=== PATIENT | male | born 1980 | race Caucasian/White ===

== ENCOUNTER 2021-03-24 08:33 | Outpatient (CLI) | payer BC, SELFPAY ==
[2021-03-24 08:51] LABS: Hematocrit 46.7 % (42.0-52.0); Hemoglobin 15.7 g/dL (14.0-18.0); Mean Corpuscular HGB Conc 33.6 g/dl (32-36); Mean Corpuscular Hemoglobin 29.7 pg (26-34); Mean Corpuscular Volume 88.3 fl (80-100); Platelet Count Result 260 k/mm3 (150-375); Red Blood Count 5.29 M/mm3 (4.6-6.20); Red Cell Distribution Width 13.3 % (11.5-14.5); White Blood Count 6.3 K/mm3 (4.5-10.0)
[2021-03-24 09:03] LABS: Alanine Aminotransferase 76 U/L (4-50); Albumin Level 4.5 g/dL (3.5-5.1); Alkaline Phosphatase 87 U/L (38-126); Anion Gap 10 mmol/L (8-16); Aspartate Amino Transferase 49 U/L (17-59); Bilirubin,Total 0.7 mg/dL (0.2-1.3); Blood Urea Nitrogen 14 mg/dL (9-20); Calcium 9.5 mg/dL (8.4-10.2); Carbon Dioxide 31 mmol/L (22-30); Chloride 101 mmol/L (98-107); Cholesterol 212 mg/dL (0-200); Estimated Glomerular Filt Rate > 60; Glucose 101 mg/dL (65-110); HDL Direct 45 mg/dL; Potassium 3.8 mmol/L (3.4-5.0); Sodium 142 mmol/L (137-145); Triglycerides 88 mg/dL (<150)
[2021-03-24 09:14] LABS: LDL Cholesterol Direct 124 mg/dL
[2021-03-29 08:47] LABS: Testosterone Total 518 ng/dL (250-1100)
== END 2021-03-24 08:34 | disposition home or self-care (01) ==
PROVIDERS: PCP Family Medicine; Visit Provider Family Medicine
DX: R53.83 Other fatigue (principal)
CPT/HCPCS: 36415; 80053; 80061; 84403; 84443; 85027

== ENCOUNTER 2023-04-08 16:12 | Emergency (ER) | payer BC, SELFPAY ==
--- NOTE | 2023-04-08 16:14 | ED.EAR ---
HPI - Ear Problem General Chief complaint: Ear Stated complaint: L EAR PROBLEMS Time Seen by Provider: 04/08/23 16:14 Source: patient Mode of arrival: ambulatory Limitations: no limitations History of Present Illness HPI Narrative: Toribio is a 42-year-old male patient presenting to the clinic today with complaints of left ear tinnitus and pain. He reports that this has been going on since Friday. Feels as though he is underwater. Denies any fever chills. Related Data Home Medications Medication Instructions Recorded Confirmed cetirizine 10 mg tablet (Zyrtec) 10 mg PO DAILY PRN 12/30/22 12/30/22 Allergies Allergy/AdvReac Type Severity Reaction Status Date / Time No Known Allergies Allergy Mild Verified 02/13/23 13:09 poison radha extract Allergy Unknown Unknown Verified 02/13/23 13:09 Review of Systems Review of Systems: Pertinent positives per HPI. Patient denies any fever, chills, rash, headache, visual changes, dizziness, cough, runny nose, sore throat, shortness of breath, chest pain, palpitations, nausea, vomiting, diarrhea, constipation, abdominal pain, or any urinary issues. FOR[facility]LY [facility], [facility] Past Medical History Medical History Anogenital (venereal) warts Body mass index [BMI] 33.0-33.9, adult (12/02/18) Dysthymia Lumbar radiculopathy Unspecified internal derangement of left knee Family History Family History Mother Family history of arthritis Other Family history of elevated blood lipids Social History Social History Smoking status: Never smoker Alcohol intake: never Lack of Transportation: No Lack of Food: Never True Current Housing: I Have Housing Concerned About Future Housing: No Difficulty Paying Gas/Electric Bills: No Difficulty Paying for Meds: No Currently Unemployed: No Education: Bachelor's Degree Difficulty w/ Childcare or Family Care: No Comments At the time of my signature, I reviewed and agree with the nursing past medical, surgical, social, and family history. There is no relevant family history pertinent to the patient complaint. Exam Narrative: General: Well-developed, well nourished, in no apparent distress Head: Normocephalic, atraumatic Eyes: Pupils equally round and reactive to light bilaterally, EOM intact, sclera and conjunctive clear, no discharge, lids normal Ears: TMs intact and clear, ear canals clear, no drainage, grossly hearing normal. Nose: Nares patent, no discharge, no inflammation, no sinus tenderness. Mouth: Oropharynx without lesions or masses, good dentition, MMM. Neck: Supple, trachea midline, no enlargement of anterior or posterior cervical nodes, no thyroid masses or goiter palpable. Cardio: Regular rate and rhythm, s1 and s2 normal, no murmur appreciated. Resp: Clear to auscultation bilaterally anteriorly and posteriorly, no rhonchi, rales, wheezing or rubs Course Course Emergency Course: Portions of this record may have been created with voice recognition software. Level of Care: Express Care Visit Vital Signs Vital signs: Vital signs reviewed Medical Decision Making MDM Narrative Medical decision making narrative: At the time of visit patient is resting comfortably on the exam table. Patient appears to be nontoxic. Supportive measures were discussed with the patient and they voiced understanding discharge instructions and agrees to treatment plan. Return precautions reviewed Differential Diagnosis Differential Diagnosis: Otitis media, otitis externa, eustachian tube dysfunction, tinnitus, vertigo, Meniere's disease, serous otitis Discharge Plan Discharge Clinical Impression: Tinnitus Qualifiers: Laterality: left Qualified Code(s): H93.12 - Tinnitus, left ear Acute serous otitis media Qualifiers: Laterality: left Recurrence: n
[2023-04-08 16:20] VITALS: BP 128/89; PULSE 64; RESP 18; TEMP 36.3; O2SAT 97
== END 2023-04-08 16:27 | disposition home or self-care (01) ==
PROVIDERS: Emergency Provider Nurse Practitioner Family; PCP Family Medicine
DX: H93.12 Tinnitus, left ear (principal); H65.02 Acute serous otitis media, left ear
CPT/HCPCS: 99213; G0463

== ENCOUNTER 2023-05-26 10:55 | Outpatient (CLI) | payer BC, SELFPAY ==
[2023-05-26 14:12] LABS: Alanine Aminotransferase 64 U/L (6-50); Albumin Level 4.4 g/dL (3.5-5.1); Alkaline Phosphatase 92 U/L (38-126); Anion Gap 1 mmol/L (8-16); Aspartate Amino Transferase 63 U/L (17-59); Bilirubin,Total 0.7 mg/dL (0.2-1.3); Blood Urea Nitrogen 17 mg/dL (9-20); Calcium 9.3 mg/dL (8.4-10.2); Carbon Dioxide 31 mmol/L (22-30); Chloride 105 mmol/L (98-107); Estimated Glomerular Filt Rate > 60; Glucose 85 mg/dL (65-110); Potassium 3.8 mmol/L (3.4-5.0); Sodium 137 mmol/L (137-145)
== END 2023-05-26 10:56 | disposition home or self-care (01) ==
LOC: ANHGOSHLAB 10:56
PROVIDERS: PCP Family Medicine; Visit Provider Family Medicine
DX: R74.8 Abnormal levels of other serum enzymes (principal)
CPT/HCPCS: 36415; 80053

== ENCOUNTER 2023-10-02 08:59 | Emergency (ER) | payer BC, SELFPAY ==
--- NOTE | ~2023-10-02 | XR_ITS ---
XR ankle RT min 3V 10/02/2023 09:22 Indication: Right ankle pain Procedure: 4 views right ankle Comparison: No prior studies for comparison. Findings: Ankle mortise intact. Moderate lateral soft tissue swelling. No fracture, subluxation or di slocation. Moderate soft tissue swelling laterally and anteriorly. Impression: 1: No acute fracture. Reviewed, dictated and finalized at location B. Impression: 1: No acute fracture.
[2023-10-02 09:09] VITALS: BP 140/78; PULSE 68; RESP 18; TEMP 36.4; O2SAT 97
--- NOTE | 2023-10-02 09:33 | ED.LOWEXIN ---
HPI - Extremity Injury (Lower) General Chief Complaint: Extremity Injury, Lower Stated Complaint: Right Ankle Injury Time Seen by Provider: 10/02/23 09:28 Source: patient and RN notes reviewed Mode of arrival: ambulatory Limitations: no limitations History of Present Illness HPI Narrative: Patient presents today complaining of right ankle pain. States he rolled it last night while playing baseball. Denies numbness or tingling in the ankle or foot. Currently rates his pain 3/10 which increases with weight-bearing. Patient took a leftover hydrocodone this morning, which does seem to help with his pain. Related Data Home Medications Medication Instructions Recorded Confirmed cetirizine 10 mg tablet (Zyrtec) 10 mg PO DAILY PRN 12/30/22 12/30/22 Allergies Allergy/AdvReac Type Severity Reaction Status Date / Time No Known Allergies Allergy Mild Verified 02/13/23 13:09 poison radha extract Allergy Unknown Unknown Verified 02/13/23 13:09 Review of Systems Review of Systems: CONSTITUTIONAL: Denies body aches, fever, chills, or sweats. EYES: Denies visual changes, redness, or discharge. ENT: Denies rhinorrhea, congestion, sore throat, or otalgia. CARDIOVASCULAR: Denies chest pain, palpitations, or edema. RESPIRATORY: Denies cough or dyspnea. GASTROINTESTINAL: Denies abdominal pain, nausea, vomiting, or diarrhea. GENITOURINARY: Denies dysuria or hematuria. SKIN: Denies rash, itching, or wounds. MUSCULOSKELETAL: Denies back pain, or myalgia.+ right ankle pain NEUROLOGIC: Denies headache, numbness, tingling, or weakness. PSYCH: Denies depression or anxiety. [facility] Past Medical History Medical History Anogenital (venereal) warts Body mass index [BMI] 33.0-33.9, adult (12/02/18) Dysthymia Lumbar radiculopathy Unspecified internal derangement of left knee Family History Family History Mother Family history of arthritis Other Family history of elevated blood lipids Social History Social History Smoking status: Never smoker Alcohol intake: never Lack of Transportation: No Lack of Food: Never True Current Housing: I Have Housing Concerned About Future Housing: No Difficulty Paying Gas/Electric Bills: No Difficulty Paying for Meds: No Currently Unemployed: No Education: Bachelor's Degree Difficulty w/ Childcare or Family Care: No Comments At time of signature, I have reviewed and agree with nursing past medical, surgical, social and family history unless otherwise noted. Please see nursing chart for further information. There is no relevant family history pertinent to the presenting complaint Exam Narrative: GENERAL: Well-appearing, well-nourished, and in no acute distress. HEAD: Normocephalic, atraumatic. EYES: EOMI. No redness or drainage. Conjunctivae normal. ENT: Mucous membranes pink and moist. NECK: Normal AROM. CHEST: No respiratory distress. EXTREMITIES: Right ankle: Mild to moderate swelling laterally. Tenderness to the anterior lateral ankle. No tenderness medially or posteriorly. Distal sensation intact. Capillary refill normal. Pedal pulse normal. Pain with P ROM in all directions. SKIN: Warm, dry, no rash. Capillary refill normal. Normal skin turgor. NEURO: No focal deficits. Alert and oriented x3. Gait steady. PSYCH: Normal affect. No signs of depression or anxiety. Course Course Level of Care: Express Care Visit Vital Signs Vital signs: Vital Signs Temperature 97.5 F L 10/02/23 09:09 Pulse Rate 68 10/02/23 09:09 Respiratory Rate 18 10/02/23 09:09 Blood Pressure 140/78 10/02/23 09:09 Pulse Oximetry 97 10/02/23 09:09 Oxygen Delivery Room Air 10/02/23 09:09 Temperature 97.5 F L 10/02/23 09:09 Pulse Rate 68 10/02/23 09:09 Respiratory
== END 2023-10-02 09:51 | disposition home or self-care (01) ==
PROVIDERS: Emergency Provider Nurse Practitioner; PCP Family Medicine
DX: S93.401A Sprain of unspecified ligament of right ankle, initial encounter (principal); X50.9XXA Other and unspecified overexertion or strenuous movements or postures, initial encounter; Y93.64 Activity, baseball; M54.16 Radiculopathy, lumbar region
CPT/HCPCS: 73610; 99213; G0463